=== PATIENT | male | born 1995 | race African-American/Black ===

== ENCOUNTER 2019-12-13 22:14 | Emergency (ER) | payer OTHER ==
[~2019-12-13] VITALS: Ht 185.4 cm; Wt 87.4 kg
[2019-12-13] MEDS ORDERED: cefTRIAXone SOD 250 MG VIAL (J0696) IM ONE (23:00)
[2019-12-13] MEDS ORDERED: AZITHROMYCIN 250 MG TAB PO ONE (23:00)
[2019-12-13] MEDS ORDERED: LIDOCAINE 1% SDV 5 ML VIAL DILUENT ONE (23:00)
[2019-12-13 23:53] VITALS: BP 131/69
[2019-12-14 02:04] LABS: CHLAMYDIA DNA AMPLIFICATION NEGATIVE (NEGATIVE); GC DNA AMPLIFICATION NEGATIVE (NEGATIVE)
[2019-12-14 13:11] LABS: HEPATITIS B SURFACE ANTIBODY POSITIVE (POSITIVE); HEPATITIS B SURFACE ANTIGEN NEGATIVE (NEGATIVE); HEPATITIS C VIRUS ABY INDEX 0.1 INDEX (<0.8); HIV 1&2 SCREEN CENTAUR NEGATIVE (NEGATIVE)
== END 2019-12-13 23:58 | disposition home or self-care (01) ==
LOC: M ED 22:14
DX: Z11.3 Encounter for screening for infections with a predominantly sexual mode of transmission (principal)
CPT/HCPCS: 81001; 86706; 86780; 86803; 87340; 87389; 87491; 87591; 96372; 99283; J0696